=== PATIENT | female | born 1950 | race Caucasian/White ===

== ENCOUNTER 2025-05-28 07:04 | Inpatient (IN) | payer OTHER ==
[2025-05-28] VITALS (18 sets, daily range): BP systolic 106–130; BP diastolic 61–89; PULSE 63–91; RESP 10–18; TEMP 97.5–98.1; O2SAT 90–99
[~2025-05-28] VITALS: Ht 165.1 cm; Wt 97.1 kg
[~2025-05-28 07:04] MED LIST: CYCL-839; DULO1CAP4 PO; GABA300T4 PO; LEVO88CA3 PO; LORA-622 PO; LOVA20TA4 PO; OXYB5SOL PO; OXYB5TAB14 PO; OXYC-113 PO; RABE20TA19 PO
[2025-05-28] MEDS ORDERED: PREGABALIN CAPSULE 75 MG CAP PO ONE (07:45)
[2025-05-28] MEDS: ACETAMINOPHEN IV 1000 MG/100ML (10MG/ML) IV ONE (08:45)
[2025-05-28] MEDS ORDERED: fentaNYL CITRATE 100 MCG/2 ML VL ONE (09:23)
[2025-05-28] MEDS ORDERED: MIDAZOLAM HCL 2MG/2ML 2ml VIAL (1mg/ml) ONE (09:24)
[2025-05-28] MEDS ORDERED: ONDANSETRON HCL 4 MG/2 ML VIAL IV PRN ×2 (10:00→11:30)
[2025-05-28] MEDS ORDERED: MIDAZOLAM HCL 2MG/2ML 2ml VIAL (1mg/ml) IV PRN (10:00)
[2025-05-28] MEDS ORDERED: HYDROmorphone HCL 2 MG/ML VL/or syr IV PRN (10:00)
[2025-05-28] MEDS ORDERED: NALOXONE HCL 0.4 MG/ML VIAL IV PRN (10:00)
[2025-05-28] MEDS ORDERED: PROPOFOL 10 MG/ML 20 ML IV ONE (10:55)
[2025-05-28] MEDS: hydrALAZINE HCL 20 MG/ML VL IV PRN (11:29)
[2025-05-28] MEDS ORDERED: NITROGLYCERIN 0.4 MG SL TAB SL PRN (11:30)
[2025-05-28] MEDS ORDERED: MORPHINE SULFATE INJ 2 MG/ml SYRG IV PRN (11:30)
[2025-05-28] MEDS: LACTATED RINGER'S 1,000 ML IV SCH (11:30)
[2025-05-28] MEDS ORDERED: LIDOCAINE W/ EPINEPHRINE 2% INJ 20ML VIAL ONE (12:17)
[2025-05-28] MEDS ORDERED: BUPIVACAINE HCL 50 ML ONE (12:19)
[2025-05-28] MEDS: ceFAZolin 2 GM/D5W50ml 50 ML IV ONE (13:47)
[2025-05-28] MEDS: CEFEPIME 1GM/50ML 50 ML IV ONE (13:48)
[2025-05-28] MEDS: TETRACAINE 1% INJ 2 ML VIAL IJ ONE (13:48)
[2025-05-28] MEDS: ACETAMINOPHEN IV 100 ML IV ONE (13:48)
[2025-05-28] MEDS: SODIUM CHLOR 0.9% PF (SALINE LOCK) 10ML VIAL/SYR IV SCH (15:37)
[2025-05-28] MEDS: GABAPENTIN 300 MG CAP PO SCH (15:41)
[2025-05-28] MEDS: ceFAZolin 1GM/50ML 50 ML IV SCH ×2 (15:42→21:54)
[2025-05-28] MEDS: DOCUSATE SOD 100 MG CAP PO SCH (21:55)
[2025-05-28] MEDS: CYCLOBENZAPRINE HCL 10 MG TAB PO PRN (21:56)
[2025-05-28] MEDS: OXYCODONE W/ ACETAMINOPHEN 5/325MG TABLET PO PRN (21:57)
[2025-05-29] VITALS (22 sets, daily range): BP systolic 109–140; BP diastolic 52–75; PULSE 51–86; RESP 16–18; TEMP 97.4–98.3; O2SAT 92–98
[2025-05-29] MEDS: LEVOTHYROXINE SODIUM 88 MCG TAB PO SCH (05:43)
[2025-05-29] MEDS: PANTOPRAZOLE 40 MG TAB PO SCH (05:43)
[2025-05-29 06:13] LABS: Hematocrit 34.7 % (36.0-46.0); Hemoglobin 11.5 g/dL (12.2-16.2); Mean Corpuscular Hemoglobin 29.7 pg (28.0-32.0); Mean Corpuscular Volume 89.6 fL (80.0-100.0); Nucleated Red Blood Cells % 0.0 %
[2025-05-29 06:41] LABS: Alanine Aminotransferase 10 U/L (7-40); Alkaline Phosphatase 101 U/L (46-116); Anion Gap 10 (5-15); BUN/Creatinine Ratio 17.9 (10.0-20.0); Blood Urea Nitrogen 15 mg/dL (9-23); Calcium 8.9 mg/dL (8.7-10.4); Carbon Dioxide 26 mmol/L (20-31); Chloride 104 mmol/L (98-107); Potassium 4.7 mmol/L (3.5-5.1); Sodium 140 mmol/L (136-145)
[2025-05-29 06:42] LABS: Total Protein 6.2 g/dL (5.7-8.2)
[2025-05-29 06:43] LABS: Albumin 3.6 g/dL (3.2-4.8)
[2025-05-29 06:50] LABS: Bilirubin, Total 0.2 mg/dL (0.2-1.0); Glucose 153 mg/dL (74-106)
[2025-05-29] MEDS: LORATADINE 10 MG TAB PO SCH (10:30)
[2025-05-29] MEDS: OXYBUTYNIN CHL 5 MG TAB PO SCH (10:31)
[2025-05-29] MEDS: CEFEPIME 1GM/50ML 50 ML IV SCH (10:33)
[2025-05-29] MEDS: ENOXAPARIN SOD 40 MG/0.4 ML SYRINGE SC SCH (10:33)
--- NOTE | 2025-05-29 14:29 | DVH ---
EXAM: XY L KNEE 3V XRAY CLINICAL INDICATION: S/P SURGERY TECHNIQUE: XY L KNEE 3V XRAY Comparison: None FINDINGS/IMPRESSION: Patient is status post total left knee arthroplasty. There is normal alignment. 0 surgical changes seen. No dislocation. No fracture. [employer]
[2025-05-29] MEDS: HYDROmorphone HCL 2 MG/ML VL/or syr IV PRN (23:17)
[2025-05-30 01:00] VITALS: BP 126/66; PULSE 76; RESP 16; TEMP 97.8; O2SAT 92
[2025-05-30 05:00] VITALS: BP 136/72; PULSE 63; RESP 16; TEMP 97.7; O2SAT 94
[2025-05-30 07:04] LABS: Hematocrit 33.7 % (36.0-46.0); Hemoglobin 11.4 g/dL (12.2-16.2)
--- NOTE | 2025-05-30 07:58 | DVHDS2 ---
Discharge Summary Date of Admission May 28, 2025 at 11:19 Date of Discharge: May 30, 2025 Wounds: 1. You will likely have a gel-type dressing over your wound, you may keep this on for 7-14 days after leaving the hospital until your first post-op visit, unless it becomes soiled or your skin becomes irritated. If a wound vac dressing is placed on your knee this is to be left in place for one week and will be changed as needed. After your remove the dressing or wound vac, the home health nurse may place clean dry dressing over your wound. Keep wound covered, clean and dry for two weeks. 2. Stafford will be removed during your initial post-op visit. If you have concerns about our wound, please call the office immediately. If nervous about staple removal can take pain pill one hour prior to appointment. 3. If there is drainage from your wound, change the dressing daily until it stops. If drainage lasts more than 10 days, call our office. 4. Low grade (up to 100 degrees) fever is common for the first week after surgery. You should take your temperature daily. If you have fevers of 101 or more, please call the office. Labs/Diagnostic Data: Laboratory Results Test 05/30/25 06:25 05/29/25 05:20 Hemoglobin 11.4 g/dL (12.2-16.2) Hematocrit 33.7 % (36.0-46.0) White Blood Count 10.3 10^3/uL (4.4-10.8) Red Blood Count 3.87 10^6/uL (4.0-5.20) Mean Corpuscular Volume 89.6 fL (80.0-100.0) Mean Corpuscular Hemoglobin 29.7 pg (28.0-32.0) Mean Corpuscular Hemoglobin Concent 33.2 g/dL (32.0-36.0) Red Cell Distribution Width 13.9 % (11.8-14.3) Platelet Count 242 10^3/uL (140-450) Mean Platelet Volume 7.8 fL (6.9-10.8) Neutrophils (%) (Auto) 90.1 % (37.0-80.0) Lymphocytes (%) (Auto) 5.8 % (10.0-50.0) Monocytes (%) (Auto) 4.0 % (0.0-12.0) Eosinophils (%) (Auto) 0.0 % (0.0-7.0) Basophils (%) (Auto) 0.1 % (0.0-2.0) Neutrophils # (Auto) 9.3 10 ^3/uL (1.6-8.6) Lymphocytes # (Auto) 0.6 10 ^3/uL (0.4-5.4) Monocytes # (Auto) 0.4 10 ^3/uL (0-1.3) Eosinophils # (Auto) 0 10 ^3/uL (0-0.8) Basophils # (Auto) 0 10 ^3/uL (0-0.2) Nucleated Red Blood Cells 0.0 % Sodium Level 140 mmol/L (136-145) Potassium Level 4.7 mmol/L (3.5-5.1) Chloride Level 104 mmol/L (98-107) Carbon Dioxide Level 26 mmol/L (20-31) Anion Gap 10 (5-15) Blood Urea Nitrogen 15 mg/dL (9-23) Creatinine 0.84 mg/dL (0.550-1.02) Glomerular Filtration Rate Calc 72 mL/min (>90) BUN/Creatinine Ratio 17.9 (10.0-20.0) Serum Glucose 153 mg/dL (74-106) Calcium Level 8.9 mg/dL (8.7-10.4) Total Bilirubin 0.2 mg/dL (0.2-1.0) Aspartate Amino Transferase (AST) 17 U/L (13-40) Alanine Aminotransferase (ALT) 10 U/L (7-40) Alkaline Phosphatase 101 U/L (46-116) Total Protein 6.2 g/dL (5.7-8.2) Albumin 3.6 g/dL (3.2-4.8) Other Laboratory Tests 05/30/25 06:25 05/29/25 05:20 Brief Hx & Hospital Course: s/p left knee revision Condition at Discharge: Good Final Diagnosis/Problems List left knee patella pain and maltracking Discharge Disposition: Home with Health Services Discharge Instruct/Medications Diet: Regular Diet comment: may advance diet as tolerated Activity: See Comment Activity comment: 1.CPM as ordered, goal is for 6 hours every day for the first 21 days of your recovery. Can break it up in to increments of 2-3 hours at a time. Most hospitals will start at 45 degrees of flexion, and increase by 5 degrees daily until the machine has been maxed out. The goal is to be at 90 degrees by first postop visit in 2 weeks. 2.No pool, jacuzzi, beach, brewster or bath for 6 weeks. Once all scabbing has fallen off patient can begin soaking and submerging knee under water for 15-minute periods at a time. 3.Physical therapy is critical in the first 2 weeks. If having issues with scheduling please inform office. 4.No running or jumping for 6 weeks. 5.Can walk and bear as much weight on the surgical leg as tolerated. No restrictions in regards to walking or standing. Follow Up/Referral: 1.Driving is not permitted within the first 2 weeks. 2.Your first postoperative visit will take place 2 weeks after discharge. Please call the office once you are home from the hospital to arrange this appointment. 3.Antibiotic preventative treatment is required before dental or other invasive procedures. Please ask your surgeon about this at your first postoperative visit. If you experience chest pain, shortness of breath or severe painful calf swelling, go to the nearest emergency room to be evaluated. Please call our office once your situation is stabilized. Scheduled Duloxetine HCl (Duloxetine HCl), Unknown Dose PO DAILY, (Reported) Gabapentin (Once-Daily) (Gabapentin), 300 MG PO TID, (Reported) Levothyroxine Sodium (Levothyroxine Sodium), 88 MCG PO DAILY, (Reported) Loratadine (Claritin), 10 MG PO DAILY, (Reported) Miscellaneous Medications Lovastatin (Lovastatin), 20 MG PO, (Reported) Oxybutynin Chloride (Oxybutynin Chloride), 5 MG PO, (Reported) Oxybutynin Chloride (Oxybutynin Chloride), 5 MG PO, (Reported) Oxycodone W/ Acetaminophen (Endocet), 1 TAB PO, (Reported) Rabeprazole Sodium (Aciphex), 20 MG PO, (Reported) [[id number] Mg], MG, (Reported) Discontinued Medications [[id number] Mcg], MCG, (Reported) Discontinued Reason: Prescription changed [Flzwsr78 Mg], MG, (Reported) Discontinued Reason: Prescription changed [Paroxetine], (Reported) Discontinued Reason: Prescription changed Discharge Statement: "Patient was advised to return to the ER or call 911 if any headaches, dizziness, shortness of breath, chest pain, abdominal pain, bleeding, fevers, or worsening of medical condition. Patient was counseled about treatment plan, medications, possible side effects, patientverbalized understanding. All questions were answered to the best of my ability. This discharge took greater then 30 minutes in planning, reviewing documentation, counseling the patient, and discussing with other team members." ASSESSMENT ASSESSMENT Assessment KENA SAENZ NP May 30, 2025 07:58
[2025-05-30 08:00] VITALS: PULSE 56; PULSE 59; RESP 17; O2SAT 98
[2025-05-30 09:00] VITALS: BP 142/83; PULSE 56; RESP 17; TEMP 98.3; O2SAT 93
[2025-05-30 11:25] VITALS: BP 142/83; PULSE 56; RESP 17; TEMP 98.3; O2SAT 98
[2025-05-30] MEDS ORDERED: PROPOFOL 10 MG/ML 20 ML IV ONE (11:46)
[2025-05-30 13:00] VITALS: BP 154/88; PULSE 64; RESP 19; TEMP 97.8; O2SAT 96
--- NOTE | 2025-06-01 12:09 | DVHOP2 ---
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 These include but are not limited to complications of anesthesia, postoperative infection, incomplete relief of symptoms, recurrence of symptoms, damage to blood vessels, nerves and tendons, deep venous thrombosis, pulmonary embolism and possible need for repeat surgery in the future. Estimated Blood Loss: 50 cc Indications for Surgery: The patient is a 75 yo F with a history of left total knee arthroplasty done at outside facility/surgeon presenting with persistent pain, functional limitation, and radiographic evidence of patellofemoral degeneration. After failure of conservative management, the decision was made to proceed with revision TKA with patella resurfacing. Name of Procedure Performed Revision left total knee replacement with patellea resurfacing Procedure Details Procedure Details: The patient was brought to the operating room and placed supine on the operating table. After induction of anesthesia, a well-padded tourniquet was applied to the left thigh. The left lower extremity was prepped and draped in the usual sterile fashion. A midline skin incision was made over the previous scar, and a medial parapatellar arthrotomy was performed. Dense adhesions were encountered and carefully lysed. The knee was exposed, and the components were inspected. The femoral and tibial components were found to be stable, with evidence of patellar cartilage degeneration. The patella was everted, and the remaining cartilage was removed. The patella was measured and prepared with a saw. all-polyethylene patellar button was cemented in place. The knee was reduced and taken through a full range of motion, confirming stability, alignment, and patellar tracking. Hemostasis was achieved. The wound was irrigated with copious normal saline. The arthrotomy was closed with #1 Vicryl suture, the subcutaneous tissue with 2- 0 Vicryl, and the skin with tamica. A sterile dressing was applied, and the patient was transferred to the recovery room in stable condition. Condition Good Disposition Still a Patient RASHID STARR MD Jun 01, 2025 12:09
== END 2025-05-30 13:55 | disposition home or self-care (01) | DRG 468 ==
LOC: SUR 07:04 → OVERFLOW 11:19 → TELE-WESTW 12:45
PROVIDERS: ADMIT Orthopaedic Surgery Adult Reconstructive Orthopaedic Surgery; ATTEND Orthopaedic Surgery Adult Reconstructive Orthopaedic Surgery
PROC: 0SWD0JC Revision of Synthetic Substitute in Left Knee Joint, Patellar Surface, Open Approach (ICD-10-PCS; principal; 2025-05-28 09:29)
DX: T84.093A Other mechanical complication of internal left knee prosthesis, initial encounter (principal); Y79.2 Prosthetic and other implants, materials and accessory orthopedic devices associated with adverse incidents
CPT/HCPCS: 36415; 73562; 80053; 85014; 85018; 85025; 86850; 86900; 86901; 87081; 97110; 97116; 97163; 97530; C1713; G0378; J0131; J1100; J2250; J2704; J3490